=== PATIENT | female | born 1965 | race Two or more races ===

== ENCOUNTER 2024-12-24 18:26 | Emergency (ER) | payer OTHER ==
[~2024-12-24] VITALS: Ht 165.1 cm; Wt 59.0 kg
[2024-12-24] MEDS ORDERED: METFORMIN HCL500 M3 (18:30)
[2024-12-24] MEDS ORDERED: EZALLOR SPRINKLE5 MG (18:30)
[2024-12-24] MEDS ORDERED: ZESTRIL2.5 MG (18:30)
[2024-12-24 20:13] LABS: BASO % 0.2 % (0.1-1.2); EOS # 0.00 (0.04-0.54); EOS % 0.0 % (0.7-7.0); LYMPH # 0.76 (1.18-3.74); LYMPH % 17.3 % (19.3-53.1); MEAN PLATELET VOLUME 12.20 fl (9.4-12.4); MONO # 0.43 (0.24-0.82); MONO % 9.8 % (4.7-12.5); NEUT # 3.19 (1.56-6.13); NEUT % 72.5 % (34.0-71.1); RED CELL DISTRIBUTION WIDTH 11.7 % (11.6-14.4)
[2024-12-24 20:38] LABS: ALT/SGPT 15.0 U/L (12-78); AST/SGOT 16.0 U/L (15-37); BILIRUBIN TOTAL 0.24 mg/dL (0.3-1.2); BUN CREA RATIO 12.0 (7.0-25.0); CREATININE SERUM 0.78 mg/dL (0.55-1.02); GFR 75.85; GLOBULINA 3.9 G/DL (2.4-3.5); GLUCOSE FASTING 140.0 mg/dL (65-100); OSMOLALITY SERUM 284.0 MOSM/KG (275-295)
[2024-12-24 20:41] LABS: COVID-19 AG POSITIVE (NEGATIVE)
[2024-12-24] MEDS ORDERED: GILTUSS HONEY118 ML PO (21:56)
[2024-12-24 22:06] VITALS: BP 110/723; O2SAT 100
== END 2024-12-24 22:14 | disposition home or self-care (01) ==
LOC: ER 18:26
PROVIDERS: Emergency Medicine
DX: U07.1 COVID-19 (principal); B34.9 Viral infection, unspecified; E11.9 Type 2 diabetes mellitus without complications; Z79.84 Long term (current) use of oral hypoglycemic drugs; I10 Essential (primary) hypertension; E78.49 Other hyperlipidemia